=== PATIENT | female | born 1965 | race African-American/Black ===

== ENCOUNTER 2017-03-31 08:40 | Emergency (ER) ==
[2017-03-31 08:45] VITALS: BP 155/104; TEMP 96.7; BMI 47.0
--- NOTE | 2017-03-31 08:59 | ED.PDOC ---
General ED Provider: Dr. 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 Rolled down window and stop.- felt better. Symptoms Are: Resolved Timing: Intermittent (Lasted a few minutes) Initial Severity: Moderate Current Severity: None Character: Reports: Dyspnea at rest (Just finished telephone call then SOA came on) Aggravating: Reports: None Alleviating: Reports: Spontaneous resolution Related History: Denies: Similar episode, Allergic reaction, Recent trauma Review of Systems - Review Of Systems Constitutional: Reports: No symptoms Respiratory: Reports: Short of air (Resolved in ER) Neurological: Reports: Anxiety (While with symptoms - became worried) All Other Systems: Reviewed and Negative Past Medical History - Past Medical History Endocrine: Reports: None Cardiovascular: Reports: Hypertension Respiratory: Reports: None Hematological: Reports: Anemia Gastrointestinal: Reports: None Genitourinary: Reports: None Neuro/Psych: Reports: None Musculoskeletal: Reports: None Cancer: Reports: None Last Menstrual Period: last month - Surgical History General Surgical History: Reports: Other (Thyroidectomy) - Family History Family History: Reports: Unknown - Social History Smoking Status: Never smoker Hx Substance Use: No Alcohol Screening: None Physical Exam - Physical Exam Appearance: Well-appearing Respiratory: Airway patent, Breath sounds clear, Breath sounds equal Cardiovascular: RRR, Pulses normal Musculoskeletal: Normal strength, ROM intact, No edema Skin: Warm, Dry, Normal color Neurological: Sensation intact, Motor intact, Alert, Oriented Psychiatric: Affect appropriate, Mood appropriate Interpretation - Radiology Interpretation Radiology Interpretation By: Radiologist Radiology Results: No acute changes Exam Interpreted: CXR - EKG Interpretation Time of EKG #1: 09:20 Rate: Normal Rhythm: Sinus Ectopy: None [place]: NL ST Segment: Normal Interpretation: No acute changes Critical Care Note - Critical Care Note Total Time (mins): 20 Course - Course Hematology/Chemistry: 03/31/17 09:35 03/31/17 09:35 Orders, Labs, Meds: Lab Review 03/31/17 03/31/17 09:35 09:35 WBC 6.61 RBC 4.71 Hgb 12.5 Hct 38.3 MCV 81.3 MCH 26.5 L MCHC 32.6 RDW Coeff of Mg 14.6 Plt Count 348 Immature Gran % (Auto) 0.5 Neut % (Auto) 71.4 Lymph % (Auto) 20.7 [place] % (Auto) 4.8 Eos % (Auto) 2.1 Baso % (Auto) 0.5 Immature Gran # (Auto) 0.0 Neut # 4.7 Lymph # 1.4 [place] # 0.3 L Eos # 0.1 Baso # 0.0 Sodium 142 Potassium 3.7 Chloride 105 Carbon Dioxide 28 Anion Gap 12.7 BUN 10 Creatinine 0.79 Estimated GFR (MDRD) 93.00 BUN/Creatinine Ratio 12.65 Glucose 95 Calcium 9.4 Total Bilirubin 0.33 AST 11 L ALT 13 Alkaline Phosphatase 88 Total Protein 7.7 Albumin 3.4 Globulin 4.3 Albumin/Globulin Ratio 0.79 Orders Category Date Time Status EKG-(ED ONLY) Stat CARDIO 03/31/17 09:05 Completed CBC W/ AUTO DIFF Stat LAB 03/31/17 09:35 Completed COMPREHENSIVE METABOLIC PANEL Stat LAB 03/31/17 09:35 Completed CHEST, 2 VIEWS PA & LAT Stat RADS 03/31/17 08:55 Completed Vital Signs: Temp Pulse Resp BP Pulse Ox 03/31/17 08:41 96.7 F L 85 24 155/104 H 100 Departure - Departure Time of Disposition: 10:15 Disposition: HOME SELF-CARE Discharge Problem: Panic attack Instructions: Panic Attack (ED) Condition: Good Pt referred to PMD for follow-up: Yes (Keep appointment tomorrow as scheduled) Additional Instructions: Resume usual activities; keep appointment with Dr. Holloway tomorrow. Allergies/Adverse Reactions: Allergies No Known Allergies Allergy (Unverified 03/31/17 08:45) Home Medications: Ambulatory Orders Ferrous Sulfate 325 mg PO DAILY 03/31/17 Irbesartan [Avapro] 300 mg PO DAILY 03/31/17 Levothyroxine Sodium [Synthroid] 175 mcg PO EVERY OTHER DAY 03/31/17 Levothyroxine Sodium [Synthroid] 200 mcg PO EVERY OTHER DAY 03/31/17 Disposition Discussed With: Patient, Family
--- NOTE | 2017-03-31 09:25 | DI ---
EXAM: Chest two views HISTORY: Short of air COMPARISON: 09/28/2011 TECHNIQUE: Two views of the chest were performed FINDINGS: The lungs are clear. There is no pleural effusion or pneumothorax. The heart is normal i n size. The mediastinal contour is normal. There are no acute abnormalities of the bones. IMPRESSION: No acute cardiopulmonary process.
[2017-03-31 09:41] LABS: BASOPHILS % (AUTO) 0.5 % (0.0-3.0); EOSINOPHILS # (AUTO) 0.1 K/ul (0.0-0.7); EOSINOPHILS % (AUTO) 2.1 % (0.0-7.0); HEMATOCRIT 38.3 % (37.0-47.0); HEMOGLOBIN 12.5 g/dl (12.0-16.0); IMMATURE GRANULOCYTE % (AUTO) 0.5 % (0.0-5.0); LYMPHOCYTES # (AUTO) 1.4 K/uL (0.60-3.4); LYMPHOCYTES % (AUTO) 20.7 (10.0-50.0); MEAN CORPUSCULAR HEMOGLOBIN 26.5 pg (27.0-31.0); MEAN CORPUSCULAR HGB CONC 32.6 (31.8-35.4); MEAN CORPUSCULAR VOLUME 81.3 fl (81.0-99.0); MONOCYTES # (AUTO) 0.3 K/uL (0.4-2.0); MONOCYTES % (AUTO) 4.8 (0-10); NEUTROPHILS # (AUTO) 4.7 K/ul (2.0-6.9); NEUTROPHILS % (AUTO) 71.4; PLATELET COUNT 348 10^3/uL (140-440); RED BLOOD COUNT 4.71 10^6/ul (4.20-5.40); WHITE BLOOD COUNT 6.61 K/ul (4.6-10.2)
[2017-03-31 10:01] LABS: ALBUMIN 3.4 g/dL (3.4-5.0); ALBUMIN/GLOBULIN RATIO 0.79; ANION GAP 12.7; BILIRUBIN,TOTAL 0.33 mg/dL (0.00-1.20); BUN/CREATININE RATIO 12.65; CALCIUM 9.4 mg/dL (8.2-10.2); CREATININE 0.79 mg/dL (0.60-1.30); POTASSIUM 3.7 mmol/L (3.5-5.10); TOTAL PROTEIN 7.7 g/dL (6.4-8.2)
== END 2017-03-31 10:32 | disposition home or self-care (01) ==
LOC: ED 08:40
DX: F41.0 Panic disorder [episodic paroxysmal anxiety] (principal)
CPT/HCPCS: 36415; 80053; 85025; 93005; 93010; 99283